=== PATIENT | female | born 1975 | race Asian ===

== ENCOUNTER 2020-11-29 15:14 | Emergency (ER) | payer BC ==
[~2020-11-29] VITALS: Ht 149.9 cm; Wt 45.4 kg
[2020-11-29 15:27] VITALS: BP_SYST 103
[2020-11-29 16:10] VITALS: BP_SYST 110
== END 2020-11-29 16:10 | disposition home or self-care (01) ==
LOC: SED 15:14
DX: S09.90XA Unspecified injury of head, initial encounter (principal); F07.81 Postconcussional syndrome; V49.9XXA Car occupant (driver) (passenger) injured in unspecified traffic accident, initial encounter; Y93.89 Activity, other specified; Y92.413 State road as the place of occurrence of the external cause; Y99.8 Other external cause status
CPT/HCPCS: 99281